=== PATIENT | female | born 1995 | race American Indian/Alaskan Native ===

== ENCOUNTER 2021-04-20 15:48 | Emergency (ER) | payer SELFPAY ==
[2021-04-20 17:48] VITALS: BP 133/68
--- NOTE | 2021-04-20 20:31 | Emergency Department Report ---
ED Rash HPI - HPI Chief Complaint: Skin Rash Stated Complaint: BODY RASH REDNESS ITCHY Time Seen by Provider: 04/20/21 19:56 Duration: 5 Days Location: Neck, Abdomen, Upper Extremities Suspected Cause: Unknown (may be related to eczema or allergies) Rash Symptoms: Yes Itching Severity: mild, moderate ED Review of Systems ROS: Stated complaint: BODY RASH REDNESS ITCHY Other details as noted in HPI Comment: All other systems reviewed and negative ED Past Medical Hx - Past Medical History Previous Medical History?: Yes Additional medical history: eczema - Surgical History Past Surgical History?: No - Medications Home Medications: Home Medications Medication Instructions Recorded Confirmed Last Taken Type Betamethasone/Propylene Glyc 1 gm TP BID #45 oint...g. 04/20/21 Unknown Rx [Diprolene 0.05% Ointment] hydrOXYzine HCL [Atarax] 25 mg PO Q6HR PRN #20 tablet 04/20/21 Unknown Rx predniSONE [Deltasone] 50 mg PO QDAY #5 tab 04/20/21 Unknown Rx Rash Exam - Exam General: Vital signs noted. No distress. Alert and acting appropriately. HEENT: No Periorbital Edema, No Conjuctival Injection, No Chemosis, No Perioral Edema, No Tongue Edema, No Uvular Edema, No Compromised Airway, No Drooling Lungs: Yes Good Air Exchange (Normal Breath Sounds), No Wheezes, No Ronchi, No Stridor, No Cough, No Labored Respirations, No Retractions, No Use of Accessory Muscles, No Other Abnormal Lung Sounds Heart: Yes Regular, No Murmur Front/Back of Body, Lg (Color): 1 - rash region .erythema wtih sand paper like presentation 2 - rash as number 1 3 - rash as number 1 4 - rash Skin: Yes Maculopapular Rash, Yes Excoriations, Yes Erythema, No Weeping, No Tenderness, No Edema, No Encrustations Other: Positive: Abdomen Normal, Neurologic Normal, Musculoskeletal Normal ED Course Vital Signs 04/20/21 17:47 Temperature 99.3 F Pulse Rate 69 Respiratory 18 Rate Blood Pressure 133/68 [Right] O2 Sat by Pulse 100 Oximetry ED Medical Decision Making - Medical Decision Making This is a 25-year-old patient presents with a rash for 3-4 days consistent with differential diagnosis includes contact, atopic,, eczematous dermatitis, psoriasis, pruritic papular eruption. History and exam findings not consistent with a dangerous etiology of rash such a Vieyra-Rigoberto's syndrome or secondary to dangerous causes such as petechial rashes from thrombocytopenia or rickettsial infections. Plan at this time is to treat symptomatically and instructed follow-up with PCP or dermatology for reevaluation further management of the skin condition Critical care attestation.: If time is entered above; I have spent that time in minutes in the direct care of this critically ill patient, excluding procedure time. ED Disposition Clinical Impression: Rash Disposition: - TO HOME OR SELFCARE Is pt being admited?: No Does the pt Need Aspirin: No Condition: Stable Instructions: Rash, Adult Prescriptions: hydrOXYzine HCL [Atarax] 25 mg PO Q6HR PRN #20 tablet PRN Reason: Itching predniSONE [Deltasone] 50 mg PO QDAY #5 tab Betamethasone/Propylene Glyc [Diprolene 0.05% Ointment] 1 gm TP BID #45 oint...g. Referrals: [facility] [Provider Group] - 3-5 Days [facility] [Provider Group] - 3-5 Days
== END 2021-04-20 20:50 | disposition home or self-care (01) ==
LOC: ED 15:48
DX: R21 Rash and other nonspecific skin eruption (principal)
CPT/HCPCS: 99282